=== PATIENT | female | born 1995 | race African-American/Black ===

== ENCOUNTER 2019-04-25 10:14 | Emergency (ER) | payer MEDICAID ==
[~2019-04-25] VITALS: Ht 167.6 cm; Wt 96.0 kg
[2019-04-25] MEDS ORDERED: KETOROLAC 60MG/2ML VIAL IM STA (12:50)
[2019-04-25] MEDS ORDERED: KETOROLAC 60MG/2ML VIAL IM ONE (13:25)
[2019-04-25 13:50] VITALS: BP 138/79
== END 2019-04-25 14:21 | disposition home or self-care (01) ==
LOC: ER 10:26
DX: S93.491A Sprain of other ligament of right ankle, initial encounter (principal); W18.39XA Other fall on same level, initial encounter; Y93.89 Activity, other specified; Y92.89 Other specified places as the place of occurrence of the external cause; Y99.8 Other external cause status
CPT/HCPCS: 73610; 81025; 99283; J1885